=== PATIENT | male | born 1935 | race Caucasian/White ===

== ENCOUNTER 2019-06-10 11:03 | Day surgery (SDC) | payer MEDICARE, BC ==
[2019-06-10] VITALS (13 sets, daily range): BP systolic 131–179; BP diastolic 52–83
[~2019-06-10 11:03] MED LIST: ASPI-1264 PO; HYDR12.522 PO; LISI40TA4 PO; SIMV-42 PO
[2019-06-10] MEDS ORDERED: ASPI-1265 PO (12:53)
[2019-06-10] MEDS ORDERED: LISI40TA4 PO (12:53)
[2019-06-10] MEDS ORDERED: BICA50TA7 PO (12:53)
[2019-06-10] MEDS ORDERED: midazolam 2 mg/2 ml injection IV PRN (13:25)
[2019-06-10] MEDS ORDERED: LIDOcaine 1%/PF 5ML 10 MG/ML VIAL SQ ONE (13:25)
[2019-06-10] MEDS ORDERED: fentaNYL/PF 50MCG/1 ML 2ML syringe IV PRN (13:25)
[2019-06-10] MEDS ORDERED: LIDOcaine 1% (10mg/ml) 2ml vial SQ ONE (14:05)
[2019-06-10] MEDS ORDERED: midazolam 2 mg/2 ml injection ONE (14:15)
[2019-06-10] MEDS ORDERED: fentaNYL/PF 50MCG/1 ML 2ML syringe ONE (14:15)
[2019-06-10] MEDS ORDERED: HYDROcodone/acetaminophen 5mg/325mg tablet PO PRN (15:00)
== END 2019-06-10 16:40 | disposition home or self-care (01) ==
LOC: SSTAY O 11:03
PROVIDERS: ATTEND Radiology Diagnostic Radiology
DX: R91.1 Solitary pulmonary nodule (principal); C7A.8 Other malignant neuroendocrine tumors; J44.9 Chronic obstructive pulmonary disease, unspecified; Z85.46 Personal history of malignant neoplasm of prostate; Z79.899 Other long term (current) drug therapy; Z79.82 Long term (current) use of aspirin
CPT/HCPCS: 32405; 71045; 77012; 99152; 99153; J2250; J3010

== ENCOUNTER 2019-06-25 07:47 | Day surgery (SDC) | payer MEDICARE, BC ==
[~2019-06-25] VITALS: Ht 182.9 cm; Wt 64.2 kg
[~2019-06-25 07:47] MED LIST changes: -ASPI-1264 PO; +ASPI-1265 PO; +BICA50TA7 PO; -HYDR12.522 PO
[2019-06-25] MEDS ORDERED: OLAN5TAB5 PO (08:22)
[2019-06-25] MEDS ORDERED: HYDR-4353 PO (08:22)
[2019-06-25 08:23] VITALS: BP 159/88
== END 2019-06-25 09:44 | disposition home or self-care (01) ==
LOC: SSTAY O 07:47
PROVIDERS: ATTEND Radiology Diagnostic Radiology
DX: J90 Pleural effusion, not elsewhere classified (principal); Z79.899 Other long term (current) drug therapy
CPT/HCPCS: 32554; 32555; 71045; C1729